=== PATIENT | female | born 1945 | race Caucasian/White ===

== ENCOUNTER → 2016-12-29 | Outpatient (CLI) | payer OTHER ==
[~2016-12-29] MED LIST: ACTONEL150 MG PO; APAP500 PO; ASPIRIN EC325 M1 PO; CELEXA 20 MG TA20 MG PO; FLEXERIL PO; FLONASE 0.05%50 MCG; K-DUR 20 MEQ T20 MEQ PO; METFORMIN HCL500 M2 PO; NORCO 5-325 TA1 EACH PO; TOPROL XL50 MG PO; TRICOR145 MG PO; VYTORIN 10-401 EACH PO; ZESTORETIC 20-1 EAC3 PO
--- NOTE | ~2016-12-29 | 2DMMODE ---
[facility] [place] [address] 2 D/M-MODE ECHOCARDIOGRAM Name: JAVIER DOTSON Room #: REG [facility]#: [id number] Admission: 12/29/16 Attend Phys: Robert Rodas MD Discharge: Date of : 45 Date of Service: 12/29/16 0959 Report #: [id number] THIS REPORT FOR: //name// APPROVED REPORT Study performed: 12/29/2016 09:12:15 EXAM: Comprehensive 2D, Doppler, and color-flow Echocardiogram Patient Location: Out-Patient Blood Pressure: 118/64 mmHg HR: 60 bpm Other Information Study Quality: Good Indications CAD 2D Dimensions RVDd: 29.29 mm LVEF(%): 53.04 (>50%) IVSd: 11.31 (7-11mm) LVOT Diam: 21.77 (18-24mm) LVDd: 40.52 mm PWd: 11.00 (7-11mm) Ascending Ao: 34.67 (22-36mm) LVDs: 29.61 (25-40mm) Aortic Root: 32.95 mm IVC: 11.00 mm Melvin's LVEF: 53.04 % Volumes Left Atrial Volume (Systole) Single Plane 4CH: 53.17 mL Single Plane 2CH: 48.45 mL LA ESV Index: 31.00 mL/m2 Aortic Valve AoV Peak Yoan.: 1.40 m/s AO Peak Gr.: 7.84 mmHg LVOT Max P.60 mmHg LVOT Max V: 0.95 m/s JOSSIE Vmax: 2.52 cm2 Mitral Valve E/A Ratio: 0.7 MV Decel. Time: 299.75 ms MV E Max Yoan.: 0.49 m/s [facility] [address] [place] [address] 2 D/M-MODE ECHOCARDIOGRAM Name: MAURIJAVIER Codey Room #: [facility]#: [id number] Admission: 12/29/16 Attend Phys: Robert Rodas MD Discharge: Date of : 45 Date of Service: 12/29/16 0959 Report #: [id number] MV A Yoan.: 0.68 m/s MV PHT: 86.93 ms IVRT: 133.79 ms Pulmonary Valve PV Peak Yoan.: 1.19 m/s PV Peak Gr.: 5.62 mmHg Pulmonary Vein P Vein S: 50.8 m/s P Vein A: 32.42 m/s P Vein D: 25.6 m/s P Vein A Dur.: 101.5 msec Tricuspid Valve TR Peak Yoan.: 2.46 m/s RAP Estimate: 5.00 mmHg TR Peak Gr.: 24.19 mmHg Left Ventricle The left ventricle is normal size. There is normal LV segmental wall motion. There is normal left ventricular wall thickness. The left ventricular systolic function is normal. The left ventricular ejection fraction is within the normal range. Grade I - abnormal relaxation pattern. Right Ventricle The right ventricle is normal size. The right ventricular systolic function is normal. Atria The left atrium size is normal. The right atrium size is normal. Aortic Valve The aortic valve is normal in structure. No aortic regurgitation is present. There is no aortic valvular stenosis. Mitral Valve The mitral valve is normal in structure. Trace mitral regurgitation. Tricuspid Valve The tricuspid valve is normal in structure. There is trace tricuspid regurgitation. The right atrial pressure is estimated at 5 mmHg. There is no pulmonary hypertension. The estimated PAP was 29 mmHg. Pulmonic Valve The pulmonary valve is normal in structure. There [place] [address] 2 D/M-MODE ECHOCARDIOGRAM Name: JAVIER DOTSON Codey Room #: REG [facility]#: [id number] Admission: 12/29/16 Attend Phys: Robert Rodas MD Discharge: Date of : 45 Date of Service: 12/29/16 0959 Report #: [id number] valvular regurgitation. Great Vessels The aortic root is normal in size. IVC is normal in size and collapses >50% with inspiration. Pericardium There is no pericardial effusion. <Conclusion> The left ventricle is normal size. The left ventricular systolic function is normal. Grade I - abnormal relaxation pattern. The right ventricle is normal size. The left atrium size is normal. The aortic valve is normal in structure. Trace mitral regurgitation. There is trace tricuspid regurgitation. The right atrial pressure is estimated at 5 mmHg. There is no pulmonary hypertension. The estimated PAP was 29 mmHg. <ELECTRONICALLY SIGNED> By: Robert Rodas MD 12/29/1659 Robert Rodas MD /INF
== END ==
LOC: CV 08:56
DX: I25.10 Atherosclerotic heart disease of native coronary artery without angina pectoris (principal)

== ENCOUNTER → 2018-01-18 | Outpatient (CLI) | payer OTHER | LOC: NUC 08:06 | DX: I25.10 Atherosclerotic heart disease of native coronary artery without angina pectoris (principal); R94.31 Abnormal electrocardiogram [ECG] [EKG]; I10 Essential (primary) hypertension; E78.5 Hyperlipidemia, unspecified; E11.9 Type 2 diabetes mellitus without complications; Z87.891 Personal history of nicotine dependence ==

== ENCOUNTER → 2021-05-12 | Outpatient (CLI) | payer OTHER | LOC: SJCVC 14:08 | PROVIDERS: ATTEND Internal Medicine Cardiovascular Disease | DX: R94.31 Abnormal electrocardiogram [ECG] [EKG] (principal); I45.4 Nonspecific intraventricular block; I44.0 Atrioventricular block, first degree; I44.7 Left bundle-branch block, unspecified; I25.10 Atherosclerotic heart disease of native coronary artery without angina pectoris; I10 Essential (primary) hypertension; E78.00 Pure hypercholesterolemia, unspecified; Z01.810 Encounter for preprocedural cardiovascular examination; Z79.899 Other long term (current) drug therapy; Z79.82 Long term (current) use of aspirin; M19.90 Unspecified osteoarthritis, unspecified site; E11.9 Type 2 diabetes mellitus without complications ==

== ENCOUNTER → 2021-06-17 | Outpatient (CLI) | payer OTHER | LOC: SJCVCIMAG 10:45 | PROVIDERS: ATTEND Internal Medicine Cardiovascular Disease | DX: I44.0 Atrioventricular block, first degree (principal); I44.7 Left bundle-branch block, unspecified; R00.0 Tachycardia, unspecified; I25.10 Atherosclerotic heart disease of native coronary artery without angina pectoris; I11.9 Hypertensive heart disease without heart failure; E78.00 Pure hypercholesterolemia, unspecified; R60.9 Edema, unspecified; Z88.8 Allergy status to other drugs, medicaments and biological substances; Z79.82 Long term (current) use of aspirin; Z79.84 Long term (current) use of oral hypoglycemic drugs; Z79.899 Other long term (current) drug therapy; Z87.891 Personal history of nicotine dependence ==